=== PATIENT | male | born 1990 | race Caucasian/White ===

== ENCOUNTER 2018-06-07 00:30 | Emergency (ER) | payer OTHER ==
[~2018-06-07] VITALS: Ht 172.7 cm; Wt 93.4 kg
[2018-06-07] MEDS ORDERED: DEXT10TA7 PO (02:01)
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
[2018-06-07] MEDS ORDERED: IBUPROFEN 200 MG TABLET PO ONE (03:00)
[2018-06-07] MEDS ORDERED: IBUPROFEN 200 MG TABLET ONE (03:00)
--- NOTE | 2018-06-07 03:03 | NUR ---
PT MEDICATED PER MAR
[2018-06-07 03:04] VITALS: BP 131/84
== END 2018-06-07 03:42 | disposition home or self-care (01) ==
LOC: ED 03:30
DX: S09.8XXA Other specified injuries of head, initial encounter (principal); X58.XXXA Exposure to other specified factors, initial encounter; Y93.89 Activity, other specified; Y92.89 Other specified places as the place of occurrence of the external cause; Y99.8 Other external cause status
CPT/HCPCS: 70450; 70486; 99284

== ENCOUNTER 2018-10-23 00:04 | Emergency (ER) | payer OTHER ==
[~2018-10-23] VITALS: Ht 172.7 cm; Wt 94.2 kg
[2018-10-23 02:23] VITALS: BP 117/81
== END 2018-10-23 03:40 | disposition home or self-care (01) ==
LOC: ED 03:19
DX: R07.89 Other chest pain (principal); I10 Essential (primary) hypertension
CPT/HCPCS: 71046; 93005; 96372; 99283; J1885